=== PATIENT | male | born 1950 | race Hispanic/Latino ===

== ENCOUNTER 2016-11-15 17:07 | Emergency (ER) | payer MEDICARE, MEDICAID ==
[2016-11-15 17:24] VITALS: BMI 33.1
--- NOTE | 2016-11-15 20:00 | C.PDOC ---
History Of Present Illness Pt apparently fell while at the intermediate. He denies any symptoms and there are no signs of trauma, but he was sent to the ED for a CT scan of the head because pt is anticoagulated. - HPI Time Seen by Provider: 11/15/16 18:10 Chief Complaint (Nursing): Medical Clearance History Per: Patient, EMS, Other ([facility] transfer papers) History/Exam Limitations: other (Dementia) Onset/Duration Of Symptoms: Other (today) Severity: Mild Additional History Per: [facility], Prior Records Past Medical History Reviewed: Historical Data, Nursing Documentation, Vital Signs Vital Signs: Last Vital Signs Temp 98.2 F 11/15/16 17:14 Pulse 65 11/15/16 17:14 Resp 20 11/15/16 17:14 BP 123/71 11/15/16 17:14 Pulse Ox 98 11/15/16 17:14 - Medical History PMH: Dementia, Deep Vein Thrombosis, HTN, Hyperlipidemia Family History: States: Unknown Family Hx - Social History Hx Alcohol Use: No Hx Substance Use: No - Immunization History Hx Tetanus Toxoid Vaccination: No Hx Influenza Vaccination: Yes (05/31/2016) Hx Pneumococcal Vaccination: Yes (06/21/2014) Review Of Systems Cardiovascular: Negative for: Chest Pain Respiratory: Negative for: Shortness of Breath Gastrointestinal: Negative for: Vomiting, Abdominal Pain Musculoskeletal: Negative for: Neck Pain, Back Pain Neurological: Negative for: Weakness, Numbness, Headache, Dizziness Physical Exam - Physical Exam Appears: Non-toxic, No Acute Distress, Other (Happy, smiling. ) Skin: Normal Color, Warm, Dry Head: Atraumatic Eye(s): bilateral: PERRL, EOMI Neck: Normal ROM, No Midline Cervical Tenderness, No Step Off Deformity, Supple Chest: Symmetrical, No Deformity Cardiovascular: Rhythm Regular Respiratory: Normal Breath Sounds, No Accessory Muscle Use Gastrointestinal/Abdominal: Soft, No Tenderness Back: No CVA Tenderness, No Vertebral Tenderness Extremity: Normal ROM, No Deformity Neurological/Psych: Normal Motor, Normal Sensation Disoriented To: Time ED Course And Treatment O2 Sat by Pulse Oximetry: 98 Pulse Ox Interpretation: Normal - Radiology Nexus Criteria: Negative - CT Scan/US CT head Other Rad Studies (CT/US): Read By Radiologist, Radiology Report Reviewed CT/US Interpretation: No acute findings. Disposition Counseled Patient/Family Regarding: Studies Performed, Diagnosis, Need For Followup - Disposition Referrals: Dorene Ingram MD [Staff Provider] - Disposition: TRANSF TO SNF Disposition Time: 20:02 Condition: STABLE Instructions: Fall Prevention for Older Adults (ED) - Clinical Impression Clinical Impression: Fall at intermediate
[2016-11-15 20:45] VITALS: BP 145/85; PULSE 82; RESP 16; TEMP 98.7; O2SAT 97
--- NOTE | 2016-11-16 08:19 | CT ---
PROCEDURE: CT HEAD WITHOUT CONTRAST. HISTORY: s/p fall, on anticoagulation COMPARISON: None available. TECHNIQUE: Axial computed tomography images were obtained through the head/brain without intravenous contrast. Radiation dose: Total exam DLP = 991 mGy-cm. This CT exam was performed using one or more of the following dose reduction techniques: Automated exposure control, adjustment of the mA and/or kV according to patient size, and/or use of iterative reconstruction technique. FINDINGS: HEMORRHAGE: No intracranial hemorrhage. BRAIN: Moderate brain volume loss. Scattered focal lucencies in the subcortical and periventricular white matter suggestive for chronic microvascular ischemic change. Bilateral basal ganglia lacunar infarcts. VENTRICLES: Prominent. CALVARIUM: Unremarkable. PARANASAL SINUSES: Unremarkable as visualized. No significant inflammatory changes. MASTOID AIR CELLS: Unremarkable as visualized. No inflammatory changes. OTHER FINDINGS: None. IMPRESSION: No acute intracranial abnormality. If focal neurologic deficit persists, consider MRI. These findings were preliminarily reported at 7:38 p.m. on 11/15/[address] Eusebio Ruvalcaba from [facility].
== END 2016-11-15 21:47 ==
LOC: C.ER 17:07
DX: Z04.3 Encounter for examination and observation following other accident (principal)

== ENCOUNTER 2017-04-12 11:15 | Day surgery (SDC) | payer MEDICARE, MEDICAID ==
[2017-04-12 11:22] VITALS: BMI 33.0
[2017-04-12] MEDS ORDERED: Propofol 10 mg/ml Inj (20 ML) ONE (12:11)
[2017-04-12] MEDS ORDERED: ceFAZolin IV 2 gm in Dextrose 1 GM/50 ML BAG IVPB ONE (12:28)
[2017-04-12] MEDS ORDERED: Dextrose 5%/0.45% NS 1,000 ML IV SCH (12:45)
[2017-04-12] MEDS ORDERED: Acetaminophen-Codeine 300/30 mg Tab PO PRN (12:47)
[2017-04-12 14:03] VITALS: BP 112/74; PULSE 65; RESP 17; TEMP 98.1; O2SAT 96
--- NOTE | 2017-04-12 15:10 | OP ---
PROCEDURE DATE: 04/12/2017 PREOPERATIVE DIAGNOSIS: Possible left follicular lesion. POSTOPERATIVE DIAGNOSIS: Possible left follicular lesion. SIGNIFICANT FINDINGS: No masses or lesion. DESCRIPTION OF PROCEDURE: The patient was brought into the room, placed in supine position. Anesthesia was initiated through an ET tube. Shoulder roll was placed and neck extended. The patient was draped in the usual manner. A tooth guard was placed over the upper teeth in order to protect them and was removed at the end of the case. Direct laryngoscope was inserted in to the oral cavity and was passed to the oropharynx and hypopharynx. The base of tongue, vallecula, epiglottis, AE folds, false cords, true cords, arytenoids, piriform sinuses, pharyngeal salter were brought in to view. No masses or lesions were noted. Multiple biopsies of the left vallecula were taken. Bleeding was controlled using direct pressure and cold water irrigation. Direct laryngoscope was removed. The patient was taken off anesthesia and taken to the recovery room in stable manner. Nando Olivera MD ZARA
== END 2017-04-12 15:18 | disposition home or self-care (01) ==
LOC: C.SDS 11:15
PROVIDERS: ATTEND Otolaryngology
DX: J38.3 Other diseases of vocal cords (principal)
CPT/HCPCS: 31525; 88305; J0690; J1100; J2001; J2704; J3010

== ENCOUNTER 2018-11-10 08:00 | Emergency (ER) | payer MEDICARE, MEDICAID ==
[2018-11-10 08:00] VITALS: BMI 32.3
[2018-11-10 08:08] VITALS: TEMP 98.3
--- NOTE | 2018-11-10 08:34 | C.PDOC ---
History Of Present Illness POOR HISTORIAN "I FEEL FINE". DENIES PAIN, DIFF URINATING OR OTHER SX. ACCOMPANIED BY SC AIDE, PT FROM [facility] "I DON'T KNOW WHY HE'S HERE EITHER". ROS UTO EXAM NAD APPEARS COMFORTABLE ABD SOFT NT ND NO R/G REMAINDER NEG Time Seen by Provider: 11/10/18 08:11 Chief Complaint (Nursing): Medical Clearance History Per: Patient, Other (NH Aide) History/Exam Limitations: other (pt is poor historian) Past Medical History Reviewed: Historical Data, Nursing Documentation, Vital Signs Vital Signs: Last Vital Signs Temp 98.3 F 11/10/18 08:07 Pulse 58 L 11/10/18 08:07 Resp 18 11/10/18 08:07 BP 117/79 11/10/18 08:07 Pulse Ox 97 11/10/18 08:07 - Medical History PMH: Anxiety, Dementia, Deep Vein Thrombosis, HTN, Hypercholesterolemia, Hyperlipidemia Denies: Chronic Kidney Disease Surgical History: No Surg Hx Family History: States: No Known Family Hx - Social History Hx Alcohol Use: No Hx Substance Use: No - Immunization History Hx Tetanus Toxoid Vaccination: No Hx Influenza Vaccination: Yes (05/31/2016) Hx Pneumococcal Vaccination: Yes (06/21/2014) Review Of Systems Review Of Systems: ROS cannot be obtained secondary to pt's inabilty to answer questions. Physical Exam - Physical Exam Appears: No Acute Distress, Other (comfortable) Skin: Normal Color, Warm, Dry Head: Atraumatic, Normacephalic Eye(s): bilateral: Normal Inspection Nose: Normal Oral Mucosa: Moist Cardiovascular: Rhythm Regular Respiratory: No Rales, No Rhonchi, No Wheezing, Other (NARD) Gastrointestinal/Abdominal: Soft, No Tenderness, No Distention, No Guarding, No Rebound Neurological/Psych: Other (no focal deficits) ED Course And Treatment - Laboratory Results Result Diagrams: 11/10/18 08:52 11/10/18 08:52 O2 Sat by Pulse Oximetry: 97 (RA) Pulse Ox Interpretation: Normal Progress - Re-Evaluation Re-evaluation Note: 11/10/18 08:34 D/W DR Breann HAGEN: FOR CONSULT REQUESTED BY SC PMD. WILL EVAL IN ER REQUESTING CBC BMP AND PSA ONLY 11/10/18 09:28 SP BLADDER SCAN <100 CC POST VOID. EXAM UNCH. PENDING EVAL 11/10/18 11:[address] MCINTOSH [facility] - Data Reviewed Data Reviewed: Lab, Diagnostic imaging, Old records Medical Decision Making Medical Decision Making: Plan: --Labs --UA Disposition Counseled Patient/Family Regarding: Studies Performed, Diagnosis, Need For Followup - Disposition Referrals: Jacinta Mcintosh MD [Staff Provider] - Disposition: HOME/ ROUTINE Disposition Time: 11:20 Condition: GOOD Forms: [facility] (Somali), General Discharge Instructions - Clinical Impression Clinical Impression: Medical assessment, Polyuria - Scribe Statement The provider has reviewed the documentation as recorded by the Scribe Yolanda Curry Provider Attestation: All medical record entries made by the Scribe were at my direction and personally dictated by me. I have reviewed the chart and agree that the record accurately reflects my personal performance of the history, physical exam, medical decision making, and the department course for this patient. I have also personally directed, reviewed, and agree with the discharge instructions and disposition.
[2018-11-10 09:00] LABS: HEMOGLOBIN 15.3 g/dL (12.0-18.0); LYMPH % 25.1 % (20.0-40.0); MEAN CELL VOLUME 97.3 fL (80.0-94.0); MEAN CORPUSCULAR HEMOGLOBIN 34.1 pg (27.0-31.0); MEAN CORPUSCULAR HGB CONC 35.1 g/dL (33.0-37.0); MEAN PLATELET VOLUME 8.3 fL (7.2-11.7); MONO # 0.4 K/uL (0.0-0.8); MONO % 10.3 % (0.0-10.0); NEUT # 2.5 K/uL (1.8-7.0); NEUT % 62.6 % (50.0-75.0); NRBC % 0.1 % (0.0-2.0); RBC 4.49 Mil/uL (4.40-5.90); RED CELL DISTRIBUTION WIDTH 13.8 % (11.5-14.5)
[2018-11-10 09:09] LABS: BLOOD UREA NITROGEN 20 mg/dL (9-20); CALCIUM 8.9 mg/dl (8.6-10.4); GFR NON-AFRICAN AMERICAN > 60
[2018-11-10 09:24] LABS: SQUAMOUS EPITHIAL < 1 /hpf (0-5); URINE BACTERIA RARE (<OCC); URINE BILIRUBIN NEGATIVE (NEGATIVE); URINE BLOOD NEGATIVE (NEGATIVE); URINE CLARITY Hazy (Clear); URINE COLOR Yellow (YELLOW); URINE GLUCOSE (UA) NORMAL (Normal); URINE LEUKOCYTE ESTERASE NEG Leu/uL (Negative); URINE PROTEIN NEGATIVE (NEGATIVE); URINE UROBILINOGEN NORMAL mg/dL (0.2-1.0)
[2018-11-10 11:16] VITALS: BP 136/82; PULSE 60; RESP 20
[2018-11-10 11:21] VITALS: O2SAT 97
--- NOTE | 2018-11-11 08:56 | C.PDOC ---
History Of Present Illness UROLOGY CONSULTATION FULL NOTE T/F IMP: BPH FREQUENCY DEMENTIA PSYCHIATRIC DISORDER Time Seen by Provider: 11/10/18 08:11 Chief Complaint (Nursing): Medical Clearance Past Medical History Vital Signs: Last Vital Signs Temp 98.3 F 11/10/18 08:07 Pulse 60 11/10/18 11:16 Resp 20 11/10/18 11:16 BP 136/82 11/10/18 11:16 Pulse Ox 97 11/10/18 12:09 - Medical History PMH: Anxiety, Dementia, Deep Vein Thrombosis, HTN, Hypercholesterolemia, Hyperl ipidemia Denies: Chronic Kidney Disease Surgical History: No Surg Hx Family History: States: No Known Family Hx, Unknown Family Hx - Social History Hx Alcohol Use: No Hx Substance Use: No - Immunization History Hx Tetanus Toxoid Vaccination: No Hx Influenza Vaccination: Yes (05/31/2016) Hx Pneumococcal Vaccination: Yes (06/21/2014) Review Of Systems Review Of Systems: ROS cannot be obtained secondary to pt's inabilty to answer questions. ED Course And Treatment - Laboratory Results Result Diagrams: 11/10/18 08:52 11/10/18 08:52 Lab Results: Urine Color Yellow (YELLOW) 11/10/18 09:15 Urine Clarity Hazy (Clear) 11/10/18 09:15 Urine pH 5.0 (5.0-8.0) 11/10/18 09:15 Ur Specific [place] 1.026 (1.003-1.030) 11/10/18 09:15 Urine Protein Negative mg/dL (NEGATIVE) 11/10/18 09:15 Urine Glucose (UA) Normal mg/dL (Normal) 11/10/18 09:15 Urine Ketones Trace mg/dL (NEGATIVE) 11/10/18 09:15 Urine Blood Negative (NEGATIVE) 11/10/18 09:15 Urine Nitrate Negative (NEGATIVE) 11/10/18 09:15 Urine Bilirubin Negative (NEGATIVE) 11/10/18 09:15 Urine Urobilinogen Normal mg/dL (0.2-1.0) 11/10/18 09:15 Ur Leukocyte Esterase Neg María Elena/uL (Negative) 11/10/18 09:15 Urine WBC (Auto) 1 /hpf (0-5) 11/10/18 09:15 Urine RBC (Auto) 2 /hpf (0-3) 11/10/18 09:15 Ur Squamous Epith Cells < 1 /hpf (0-5) 11/10/18 09:15 Urine Bacteria Rare (<OCC) 11/10/18 09:15 O2 Sat by Pulse Oximetry: 97 (RA) Disposition - Disposition Referrals: Jacinta Mcintosh MD [Staff Provider] - Disposition: HOME/ ROUTINE Disposition Time: 10:30 Condition: GOOD Forms: General Discharge Instructions, [facility] (Turkmen) - Clinical Impression Clinical Impression: Medical assessment, Polyuria
--- NOTE | 2018-11-13 07:20 | ED ---
UROLOGY ER NOTE AND UROLOGY CONSULTATION CONSULT REQUESTED BY: Dorene Ingram MD Urology consultation is filled by Dr. Jacinta Mcintosh. REASON FOR CONSULTATION: Urinary frequency. Prostatic enlargement. HISTORY OF PRESENT ILLNESS: The patient is a 67-year-old male with voiding symptoms. The patient is in otherwise fair health. The patient was noted to have urinary frequency. He is referred for further urologic evaluation. The patient reports no difficulty voiding. He reports good urinary stream and good control. The patient reports no incontinence. The patient does have nocturia. He reports no hematuria. No flank pain. No history of urolithiasis. The patient is a resident of [facility]. The patient has significant medical history including psychiatric disease and dementia. The patient's medication sheet is reviewed as well. There has been no recent fever, rigors. The patient reports no chest pain. No nausea or vomiting. No dyspnea. The patient does not ambulate well. He is mostly in a wheelchair or in bed. MEDICATIONS: Include Aricept, Depakote, Colace, Lipitor, lisinopril, Zoloft, Xarelto. PHYSICAL EXAMINATION: GENERAL: The patient is a well-developed, well-nourished elderly male. The patient is awake and alert. He is oriented x2. ABDOMEN: Soft, nontender, nondistended. No mass or organomegaly. BACK: No CVA tenderness. GENITOURINARY: Genitalia without inflammation. RECTAL: Normal sphincter tone. Prostate is moderately enlarged. Prostate is approximately 30 g in size, without fixation, induration or nodularity. He has no prostatic tenderness. There is no rectal mass. LABORATORY DATA: Reviewed as well. White blood count 4500, hematocrit 45. BUN 21, creatinine 1.2. GFR 60. Calcium 9. Serum PSA is 0.31. IMPRESSION: A 67-year-old male with benign prostatic hypertrophy and voiding symptoms. The patient has cardiac disease, history of hypertension, history of psychiatric disease, history of dementia. The patient is not complaining of symptoms at present. The attendant from [facility] is with the patient and also unaware of any exacerbation of the patient's urinary symptoms. RECOMMENDATION AND PLAN: Monitor voiding symptoms. I checked the bladder scan to check postvoid residual. Postvoid residual was 43 mL during the visit to the emergency room. Further therapy to follow according to the patient's clinical course. At present, no further urologic evaluation is planned. If the patient's clinical status changes, further intervention can be arranged. Please notify me if such. Thank you for recommending the patient for urology consultation. Clint MD Arnaldo cc: Dorene Ingram MD
== END 2018-11-10 11:26 | disposition home or self-care (01) ==
LOC: C.ER 08:00
DX: N40.1 Benign prostatic hyperplasia with lower urinary tract symptoms (principal); R35.0 Frequency of micturition; F99 Mental disorder, not otherwise specified; F03.90 Unspecified dementia, unspecified severity, without behavioral disturbance, psychotic disturbance, mood disturbance, and anxiety